=== PATIENT | male | born 1955 | race Caucasian/White ===

== ENCOUNTER 2021-01-19 00:57 | Day surgery (SDC) | payer BC, SELFPAY ==
[2021-01-02 13:21] VITALS: BMI 27.0
[2021-01-19] MEDS: LACTATED RINGERS 1,000 ML 150 ML IV CONT (06:47)
--- NOTE | 2021-01-19 06:51 | WPDANESEPPF ---
Anes - Initial Pre Proc Eval Procedure: Operation Date: 01/19/21 08:00 Proposed Procedures p Screening Colonoscopy - oJse G Carrasco MD Date/Time: 01/19/21 06:51 Surgeon: Jose G Carrasco MD Pre Op Diagnosis: neoplasm screening Patient Data Age: 65 Gender: M Height: 1.85 m Weight: 92.9 kg Allergies Allergy/AdvReac Type Severity Reaction Status Date / Time No Known Allergies Allergy Unknown Verified 01/19/21 06:45 Home Medications Medication Instructions Recorded Confirmed Type aspirin 81 mg tablet,delayed 81 mg PO DAILY 09/05/20 01/19/21 History release cholecalciferol (vitamin D3) 50 50 mcg PO BID 09/05/20 01/19/21 History mcg (2,000 unit) capsule glucosamine-chondroitin 500 mg-400 1 cap PO DAILY 09/05/20 01/19/21 History mg capsule loratadine 10 mg capsule 10 mg PO DAILY 09/05/20 01/19/21 History tamsulosin 0.4 mg capsule 0.4 mg PO DAILY 09/05/20 01/19/21 History venlafaxine 75 mg capsule,extended 75 mg PO DAILY #90 cap 09/05/20 01/19/21 Rx release 24 hr sod picosulf 10 mg-magnes 3.5 160 ml PO BID #160 ml 10/20/20 01/19/21 Rx gram-citric 12 gram/160 mL oral solution rosuvastatin 5 mg tablet 5 mg PO DAILY #30 tablet 12/15/20 01/19/21 Rx Adults Multivitamin 1 caplet PO DAILY 01/03/21 01/19/21 History coQ10 (ubiquinol) 1 caplet PO DAILY 01/03/21 01/19/21 History Patient hx anesthesia problems: none Family hx anesthesia problems: none PMFSH Past Medical History Medical History (Updated 01/19/21 @ 06:51 by Chapin Zayas MD) Depression Dyslipidemia Essential tremor Establishing care with new doctor, encounter for Social History Social History Smoking status: Former smoker Second hand tobacco smoke exposure: No Drinks per week: 3 Alcohol use details: 5-6 drinks on Fridays, Saturdays and Sundays Substance use: never Living arrangements: with family Gender identity (if verbalized by the patient): Male Spiritual care concerns: No Anes - Eval Final PreProcedure Day of Procedure 01/19/21 06:51 Patient weight: overweight Heart: regular rate and rhythm Lungs: clear to auscultation Airway: Mallampati scale class II Neurological: alert and oriented Last oral intake: >/= 8 hours ASA classification: II Emergent: no Anesthetic plan: proceed Anesthesia type and monitoring: general GIVS and standard monitoring Informed Consent: The patient's anesthetic plan and its attendant risks and benefits were discussed with the patient/family/POA. Questions were solicited and answers provided to the satisfaction of the patient/family/POA.
[2021-01-19 07:15] VITALS: BP 123/84; PULSE 74; RESP 16; TEMP 36; O2SAT 100; BMI 26.9
--- NOTE | 2021-01-19 07:37 | SUR.OPER ---
0730 SPOKE WITH PATIENT AND FAMILY...INSTRUCTED ON DELAY.
--- NOTE | 2021-01-19 08:15 | PM.HPGS ---
History of Present Illness History of Present Illness Consent: Risks, benefits, and alternatives have been discussed and questions answered. Patient agrees to proceed with procedure. Chief complaint: neoplasm screening Narrative: Ricardo Morrow is a 65 year old male here for screening colonoscopy, last one 10 years ago Review of Systems Constitutional: Constitutional: Denies headache(s) and Denies weakness Eyes: Eyes: Denies blurry vision ENT: Reports Normal hearing present, Denies headache(s) and Denies neck pain Cardiovascular: Cardiovascular: Denies chest pain and Denies dyspnea Respiratory: Respiratory: Denies dyspnea Gastrointestinal: Gastrointestinal: Reports no additional gastrointestinal complaints Genitourinary: Genitourinary: Denies dysuria Musculoskeletal: Musculoskeletal: Denies neck pain Integumentary/Breasts: Skin/Breast: Denies dry skin Neurologic: Reports Normal hearing present, Denies headache(s) and Denies weakness Psychiatric: Psychiatric: Denies anxiety Endocrine: Endocrine: Denies change in body appearance Hematologic/Lymphatic: Hematologic/Lymphatic: Denies easy bleeding Allergic/Immunologic: Allergic/Immunologic: Denies urticaria PMFSH Past Medical History Medical History (Updated 01/19/21 @ 06:51 by Chapin Zayas MD) Depression Dyslipidemia Essential tremor Establishing care with new doctor, encounter for Social History Social History Smoking status: Former smoker Second hand tobacco smoke exposure: No Drinks per week: 3 Alcohol use details: 5-6 drinks on Fridays, Saturdays and Sundays Substance use: never Living arrangements: with family Gender identity (if verbalized by the patient): Male Spiritual care concerns: No Meds Home Medications and Allergies Home Medications Medication Instructions Recorded Confirmed Type aspirin 81 mg tablet,delayed 81 mg PO DAILY 09/05/20 01/19/21 History release cholecalciferol (vitamin D3) 50 50 mcg PO BID 09/05/20 01/19/21 History mcg (2,000 unit) capsule glucosamine-chondroitin 500 mg-400 1 cap PO DAILY 09/05/20 01/19/21 History mg capsule loratadine 10 mg capsule 10 mg PO DAILY 09/05/20 01/19/21 History tamsulosin 0.4 mg capsule 0.4 mg PO DAILY 09/05/20 01/19/21 History venlafaxine 75 mg capsule,extended 75 mg PO DAILY #90 cap 09/05/20 01/19/21 Rx release 24 hr sod picosulf 10 mg-magnes 3.5 160 ml PO BID #160 ml 10/20/20 01/19/21 Rx gram-citric 12 gram/160 mL oral solution rosuvastatin 5 mg tablet 5 mg PO DAILY #30 tablet 12/15/20 01/19/21 Rx Adults Multivitamin 1 caplet PO DAILY 01/03/21 01/19/21 History coQ10 (ubiquinol) 1 caplet PO DAILY 01/03/21 01/19/21 History Allergies Allergy/AdvReac Type Severity Reaction Status Date / Time No Known Allergies Allergy Unknown Verified 01/19/21 06:45 Vital Signs Vital Signs - 24 hr 01/19/21 07:15 Temperature 96.8 F L Pulse Rate 74 Respiratory Rate 16 Blood Pressure 123/84 Pulse Oximetry 100 Exam Const: General: comfortable and no acute distress HENMT: General nose exam: Normal nares present Eyes: General: appearance normal, both eyes and all related structures Neck: Neck: no JVD Resp: Auscultation: clear to auscultation bilaterally Cardio: Rate: regular rate Rhythm: regular rhythm GI: Inspection: non-distended GI Palp: Yes Soft to palpation Skin: General skin exam: normal color Neuro: General: gait normal Speech: normal speech Extrem: General: normal to inspection Psych: Mental Status: mental status grossly normal Assessment and Plan Assessment and plan (1) Encounter for screening colonoscopy: Code(s): Z12.11 - Encounter for screening for malignant neoplasm of colon Status: Acute Assessment and Plan: colonoscopy
[2021-01-19 08:40] VITALS: BP 113/75; PULSE 74; RESP 21; O2SAT 100
[2021-01-19 08:50] VITALS: BP 122/72; PULSE 64; RESP 17; O2SAT 100
[2021-01-19 09:00] VITALS: BP 121/80; PULSE 60; RESP 19; O2SAT 100
== END 2021-01-19 09:10 | disposition home or self-care (01) ==
PROVIDERS: PCP Internal Medicine; Visit Provider Internal Medicine Gastroenterology
PROC: 0DJD8ZZ Inspection of Lower Intestinal Tract, Via Natural or Artificial Opening Endoscopic (ICD-10-PCS; CPT 45378; principal; 2021-01-19 08:00)
DX: Z12.11 Encounter for screening for malignant neoplasm of colon (principal); F32.9 Major depressive disorder, single episode, unspecified; E78.5 Hyperlipidemia, unspecified; G25.0 Essential tremor; K64.8 Other hemorrhoids
CPT/HCPCS: 45378; J2704; J7120

== ENCOUNTER 2021-10-10 09:11 | Outpatient (CLI) | payer MEDICARE, SELFPAY ==
--- NOTE | ~2021-10-10 | US_ITS ---
EXAMINATION: US aorta [facility] DATE: 10/10/2021 09:46 INDICATION: Abdominal aortic aneurysm screening. TECHNIQUE: Grayscale, color Doppler, and pulsed Doppler images of the aorta and common iliac arteries were obtained. COMPARISON: None. FINDINGS: The aorta is normal in caliber. The right common iliac artery is normal in caliber. The left common i liac artery is normal in caliber. IMPRESSION: 1. No abdominal aortic aneurysm. Reviewed, dictated and finalized at location A.
== END 2021-10-10 09:12 | disposition home or self-care (01) ==
PROVIDERS: PCP Internal Medicine; Visit Provider Internal Medicine
DX: Z13.6 Encounter for screening for cardiovascular disorders (principal); Z87.891 Personal history of nicotine dependence
CPT/HCPCS: 76706

== ENCOUNTER 2022-05-08 12:49 | Inpatient (IN) | payer MEDICARE, SELFPAY ==
[2022-05-08] VITALS (16 sets, daily range): BP systolic 119–157; BP diastolic 51–74; PULSE 60–85; RESP 14–30; TEMP 36.7–39.6; O2SAT 94–100
--- NOTE | ~2022-05-08 | CT_ITS ---
EXAMINATION: CT abdomen pelvis w con DATE: 05/08/2022 15:22 INDICATION: RLQ pain, septic TECHNIQUE: Computed tomography (CT) of the abdomen and pelvis was performed with 100 mL Omnipaque-350 intravenous contrast. Automated exposure control and iterative reconstruction technique were employe d. The dose-length product was 686.38 mGy-cm. COMPARISON: None. FINDINGS: Lower thorax: Small hiatal hernia. Liver: Normal. Biliary/Gallbladder: Gallbladder is normal. No bile duct dilation. Pancreas: No mass or duct dilation. Spleen: Normal. Adrenals:No mass. Kidneys: Simple right midpole cyst. Bilateral perinephric stranding. No hydronephrosis, suspicious ma ss, or obstructing calcification GI tract: No small or large bowel dilation. Dilated, hyperemic appendix with moderate surrounding inf lammatory change, cecal wall edema, and an appendicolith. Mesentery/Peritoneum: No ascites, mass, or free air. Retroperitoneum: No mass. Atherosclerotic abdominal aortic and/or arterial calcifications. Pelvis: Obscured by metal artifact. Prostatomegaly. Soft Tissues: Uncomplicated moderate bilateral fat-containing inguinal hernias and small fat-containi ng umbilical hernia. Bones: No acute osseous finding. Incompletely visualized, uncomplicated appearing right hip arthropl asty IMPRESSION: Acute uncomplicated appendicitis. Reviewed, dictated and finalized at location K.
[2022-05-08 13:21] LABS: Basophils Percent Auto 0.3 % (0.2-1.2); Eosinophils Percent Auto 0.1 % (0-4.4); Hematocrit 44.7 % (42.0-52.0); Immature Granulocyte Absolute 0.05 K/mm3 (0.00-0.031); Immature Granulocyte Percent A 0.4 % (0-0.5); Lymphocytes Absolute Auto 0.97 K/mm3 (0.9-3.2); Lymphocytes Percent Auto 8.3 % (18.3-44.2); Mean Corpuscular HGB Conc 33.6 g/dl (32-36); Mean Corpuscular Hemoglobin 33.6 pg (26-34); Mean Platelet Volume 9.3 fl (7.4-10.4); Monocytes Percent Auto 8.2 % (2.6-8.5); Neutrophils Absolute Auto 9.7 K/mm3 (1.3-6.7); Neutrophils Percent Auto 82.7 % (45.5-73.1); Platelet Count Result 207 k/mm3 (150-375); Red Blood Count 4.47 M/mm3 (4.6-6.20); Red Cell Distribution Width 12.8 % (11.5-14.5); White Blood Count 11.7 K/mm3 (4.5-10.0)
[2022-05-08 13:32] LABS: Alanine Aminotransferase 21 U/L (6-50); Albumin Level 4.5 g/dL (3.5-5.1); Alkaline Phosphatase 97 U/L (38-126); Anion Gap 13 mmol/L (8-16); Aspartate Amino Transferase 28 U/L (17-59); Bilirubin,Total 1.3 mg/dL (0.2-1.3); Blood Urea Nitrogen 10 mg/dL (9-20); Calcium 8.7 mg/dL (8.4-10.2); Carbon Dioxide 25 mmol/L (22-30); Chloride 98 mmol/L (98-107); Estimated Glomerular Filt Rate > 60; Glucose 138 mg/dL (65-110); Lipase 119 U/L (23-300); Potassium 3.8 mmol/L (3.4-5.0); Sodium 136 mmol/L (137-145)
--- NOTE | 2022-05-08 14:32 | ED.ABDPAIN ---
HPI - Abdominal Pain General Chief Complaint: Abdominal Pain Stated Complaint: ABD PAIN Time Seen by Provider: 05/08/22 14:31 Source: patient Mode of arrival: ambulatory Limitations: no limitations History of Present Illness HPI narrative: Patient is a 66-year-old male with a history of dyslipidemia, depression, BPH, presenting to the emergency department for evaluation of RLQ abd pain. Patient reports worsening right lower quadrant abdominal pain over the past 24 hours. Patient states that pain initially started as a gas-like pain in the right lower quadrant, patient now feels that he has severe pain on the entire right side of the abdomen. No radiation into the chest or flank. No ripping or tearing sensation to the pain. Patient reports fever, chills, nausea. Denies vomiting. Patient reports history of hernia repair in the past. Denies history of other intra-abdominal surgeries. He reports decreased oral intake and lack of appetite secondary to the pain. Last solid food intake was 05/07 approximately 8:30 PM. Patient did have a few small sips of clear liquids this morning. Related Data Home Medications Medication Instructions Recorded Confirmed aspirin 81 mg tablet,delayed 81 mg PO DAILY 09/05/20 10/02/21 release cholecalciferol (vitamin D3) 50 50 mcg PO BID 09/05/20 10/02/21 mcg (2,000 unit) capsule glucosamine-chondroitin 500 mg-400 1 cap PO DAILY 09/05/20 10/02/21 mg capsule loratadine 10 mg capsule 10 mg PO DAILY 09/05/20 10/02/21 Adults Multivitamin 1 caplet PO DAILY 01/03/21 10/02/21 famotidine 20 mg tablet 20 mg PO DAILY 03/26/21 10/02/21 melatonin 500 mcg disintegrating 0.5 mg sublingual QHS PRN 03/26/21 10/02/21 tablet,sublingual vitamin B complex 1 cap PO DAILY 03/26/21 10/02/21 Allergies Allergy/AdvReac Type Severity Reaction Status Date / Time No Known Allergies Allergy Unknown Verified 05/08/22 14:38 Review of Systems Review of Systems: CONSTITUTIONAL: Reports fever and chills EYES: Denies visual changes, redness, or discharge. ENT: Denies rhinorrhea, congestion, sore throat, or otalgia. CARDIOVASCULAR: Denies chest pain, palpitations, or edema. RESPIRATORY: Denies cough or dyspnea. GASTROINTESTINAL: Reports abdominal pain and nausea GENITOURINARY: Denies dysuria or hematuria. SKIN: Denies rash or itching. MUSCULOSKELETAL: Denies back pain, joint pain, or myalgia. NEUROLOGIC: Denies headache, numbness, or weakness. [facility] Past Medical History Medical History Depression Dyslipidemia Essential tremor Establishing care with new doctor, encounter for Social History Social History Smoking status: Never smoker Second hand tobacco smoke exposure: No Alcohol intake: current Drinks per week: 3 Alcohol use details: 5-6 drinks on Fridays, Saturdays and Sundays Substance use: never Substance use type: does not use Gender identity (if verbalized by the patient): Male Spiritual care concerns: No Exam Narrative: GENERAL: Awake, alert, conversant HEAD: Normocephalic, atraumatic. EYES: PERRLA and EOMI. ENT: Nares clear, no rhinorrhea or epistaxis. Mucous membranes dry NECK: Supple. CHEST: No respiratory distress, breathing even and non labored HEART: Regular rate, sinus rhythm ABDOMEN:Non distended, focal tenderness in the right lower quadrant, guarding present, patient with rebound EXTREMITIES: Normal range of motion. No edema. SKIN: Warm, dry, no rash. NEURO:No focal deficits. Alert and oriented x3 Course Vital Signs Vital signs: Vital Signs Temperature 37.7 C H 05/08/22 13:53 Pulse Rate 73 05/08/22 13:53 Respiratory Rate 18 05/08/22 13:53 Blood Pressure 122/60 05/08/22 13:53 Pulse Oximetry 100 05/08/22 13:53 Temperature 39.0 C H 05/08/22 16:10 Pulse Rate 78 05/08/22 16:10 Respiratory Rate 16 05/08/22 16:10 Blood Pressur
[2022-05-08] MEDS: ONDANSETRON INJ 4 MG/2 ML VIAL IV PUSH (15:05)
[2022-05-08] MEDS: SODIUM CHLORIDE 0.9% IV 1,000 ML 999 ML IV CONT (15:06)
[2022-05-08] MEDS: MORPHINE SULFATE (*CRX) 4 MG/ML INJ IV PUSH (15:06)
[2022-05-08 16:05] LABS: Lactic Acid Reflex 2.1 mmol/L (0.7-2.0)
[2022-05-08] MEDS: LACTATED RINGERS 1,000 ML 30 ML IV CONT ×2 (16:30→18:24)
[2022-05-08 16:32] LABS: SARS-CoV-2 RNA PCR Negative
--- NOTE | 2022-05-08 16:50 | WPDHPUPDATE1 ---
History and Physical Update Update Date/Time: 05/08/22 16:50 History and Physical has been reviewed, including an updated exam of the patient. There are NO changes in the patient's condition. Risks, benefits, and alternatives have been discussed and questions answered. Patient agrees to proceed with procedure.
--- NOTE | 2022-05-08 16:56 | PM.IMHP ---
H&P: HPI History of Present Illness Date/Time: 05/08/22 16:56 Chief Complaint: Right lower quadrant abdominal pain Narrative: Patient is a 66-year-old man who began experiencing mid abdominal pain last night. This moved to the right lower quadrant and became more severe. He also had nausea and has been having fevers. He has had a temp of a 102.2? while in the emergency room. He was noted to have tenderness with guarding in both the right and left lower quadrants. His white blood cell count is elevated to 11,700. CT scan of the abdomen and pelvis showed acute appendicitis. I reviewed the CT scan independently. I agree there is an appendicoliths in the appendix is quite dilated at 18.8 mm by my measurement. He also has a skin mole on his right eyelid which has been bothering him and getting larger. He would like for me to remove this at the same procedure. Review of Systems Review of Systems: All systems reviewed & are unremarkable except as noted in HPI and below (HPI and those items noted below) Constitutional: Constitutional: Denies chills and Denies fever(s) Cardiovascular: Cardiovascular: Denies chest pain, Denies diaphoresis, Denies dyspnea and Denies paroxysmal nocturnal dyspnea Respiratory: Respiratory: Denies chest congestion, Denies cough and Denies dyspnea Integumentary/Breasts: Skin/Breast: Denies lesions and Denies rash PMFSH Past Medical History Medical History Depression Dyslipidemia Essential tremor Establishing care with new doctor, encounter for Social History Social History Smoking status: Never smoker Second hand tobacco smoke exposure: No Alcohol intake: current Drinks per week: 3 Alcohol use details: 5-6 drinks on Fridays, Saturdays and Sundays Substance use: never Substance use type: does not use Gender identity (if verbalized by the patient): Male Spiritual care concerns: No Meds Home Medications and Allergies Home Medications Medication Instructions Recorded Confirmed Type aspirin 81 mg tablet,delayed 81 mg PO DAILY 09/05/20 10/02/21 History release cholecalciferol (vitamin D3) 50 50 mcg PO BID 09/05/20 10/02/21 History mcg (2,000 unit) capsule glucosamine-chondroitin 500 mg-400 1 cap PO DAILY 09/05/20 10/02/21 History mg capsule loratadine 10 mg capsule 10 mg PO DAILY 09/05/20 10/02/21 History Adults Multivitamin 1 caplet PO DAILY 01/03/21 10/02/21 History famotidine 20 mg tablet 20 mg PO DAILY 03/26/21 10/02/21 History melatonin 500 mcg disintegrating 0.5 mg sublingual QHS PRN 03/26/21 10/02/21 History tablet,sublingual vitamin B complex 1 cap PO DAILY 03/26/21 10/02/21 History primidone 50 mg tablet 75 mg PO QHS 90 days #135 tabs 12/21/21 Rx venlafaxine 75 mg capsule,extended 75 mg PO DAILY #90 caps 01/29/22 Rx release 24 hr tamsulosin 0.4 mg capsule 0.4 mg PO DAILY #90 caps 02/15/22 Rx Allergies Allergy/AdvReac Type Severity Reaction Status Date / Time No Known Allergies Allergy Unknown Verified 05/08/22 14:38 Vital Signs Vital Signs - 24 hr 05/08/22 13:53 05/08/22 14:36 05/08/22 16:10 Temperature 37.7 C H 38.2 C H 39.0 C H Pulse Rate 73 77 78 Respiratory Rate 18 18 16 Blood Pressure 122/60 157/74 H 121/57 L Pulse Oximetry 100 100 95 Oxygen Delivery Room Air Exam Narrative: Febrile Const: General: cooperative, healthy appearing, no acute distress, alert, awake, uncomfortable and well nourished Nutritional Appearance: average body habitus Orientation/consciousness: patient oriented x3 HENMT: Head: normocephalic and atraumatic Mouth: Yes Normal oral and palatal mucosa present Eyes: Eyelids: eyelid abnormality right upper eyelid (Dark but regular exophytic skin mole noted) Conjunctivae: conjunctivae normal Pupils: Equal, round and reactive pupils present EOM: EOMs intact bilaterally Neck: Neck:
--- NOTE | 2022-05-08 17:00 | WPDANESEPP ---
Anes - Eval Pre Procedure Procedure: Operation Date: 05/08/22 16:00 Proposed Procedures p Laparoscopic Appendectomy - Mike Cintron MD Date/Time: 05/08/22 17:00 Surgeon: Abdulaziz Preop Diagnosis: Acute appendicitis Pre Op Diagnosis: ABD PAIN Patient Data Age: 66 Gender: M Height: 1.85 m Weight: 88.6 kg Last Vital Signs Temp 102.2 F H 05/08/22 16:10 Pulse 78 05/08/22 16:10 Resp 16 05/08/22 16:10 BP 121/57 L 05/08/22 16:10 Pulse Ox 95 05/08/22 16:10 O2 Del Method Room Air 05/08/22 14:36 Allergies Allergy/AdvReac Type Severity Reaction Status Date / Time No Known Allergies Allergy Unknown Verified 05/08/22 14:38 Home Medications Medication Instructions Recorded Confirmed Type aspirin 81 mg tablet,delayed 81 mg PO DAILY 09/05/20 10/02/21 History release cholecalciferol (vitamin D3) 50 50 mcg PO BID 09/05/20 10/02/21 History mcg (2,000 unit) capsule glucosamine-chondroitin 500 mg-400 1 cap PO DAILY 09/05/20 10/02/21 History mg capsule loratadine 10 mg capsule 10 mg PO DAILY 09/05/20 10/02/21 History Adults Multivitamin 1 caplet PO DAILY 01/03/21 10/02/21 History famotidine 20 mg tablet 20 mg PO DAILY 03/26/21 10/02/21 History melatonin 500 mcg disintegrating 0.5 mg sublingual QHS PRN 03/26/21 10/02/21 History tablet,sublingual vitamin B complex 1 cap PO DAILY 03/26/21 10/02/21 History primidone 50 mg tablet 75 mg PO QHS 90 days #135 tabs 12/21/21 Rx venlafaxine 75 mg capsule,extended 75 mg PO DAILY #90 caps 01/29/22 Rx release 24 hr tamsulosin 0.4 mg capsule 0.4 mg PO DAILY #90 caps 02/15/22 Rx Laboratory Tests 05/08/22 05/08/22 05/08/22 13:12 13:12 15:48 WBC 11.7 K/mm3 H K/mm3 (4.5-10.0) RBC 4.47 M/mm3 L M/mm3 (4.6-6.20) Hgb 15.0 g/dL g/dL (14.0-18.0) Hct 44.7 % % (42.0-52.0) MCV 100.0 fl fl (80-100) MCH 33.6 pg pg (26-34) MCHC 33.6 g/dl g/dl (32-36) RDW 12.8 % % (11.5-14.5) Plt Count 207 k/mm3 k/mm3 (150-375) MPV 9.3 fl fl (7.4-10.4) Immature Gran % (Auto) 0.4 % % (0-0.5) Neut % (Auto) 82.7 % H % (45.5-73.1) Lymph % (Auto) 8.3 % L % (18.3-44.2) Blair % (Auto) 8.2 % % (2.6-8.5) Eos % (Auto) 0.1 % % (0-4.4) Baso % (Auto) 0.3 % % (0.2-1.2) Lymph # (Auto) 0.97 K/mm3 K/mm3 (0.9-3.2) Blair # (Auto) 1.0 K/mm3 H K/mm3 (0.1-0.6) Eos # (Auto) 0.0 K/mm3 K/mm3 (0-0.3) Baso # (Auto) 0.0 K/mm3 K/mm3 (0.0-0.1) Abs Immat Gran (auto) 0.05 K/mm3 H K/mm3 (0.00-0.031) Absolute Neuts (auto) 9.7 K/mm3 H K/mm3 (1.3-6.7) Absolute Nucleated RBC 0.0 K/mm3 K/mm3 (0.0-0.012) Nucleated RBC % 0.0 % % (0.0-0.2) Sodium 136 mmol/L L mmol/L (137-145) Potassium 3.8 mmol/L mmol/L (3.4-5.0) Chloride 98 mmol/L mmol/L (98-107) Carbon Dioxide 25 mmol/L mmol/L (22-30) Anion Gap 13 mmol/L mmol/L (8-16) BUN 10 mg/dL mg/dL (9-20) Creatinine 0.70 mg/dL mg/dL (0.7-1.3) Estim Creat Clear Calc Not Reportable Estimated GFR > 60 (59 - ) Glucose 138 mg/dL H mg/dL (65-110) Lactic Acid 2.1 mmol/L H mmol/L (0.7-2.0) Calcium 8.7 mg/dL mg/dL (8.4-10.2) Total Bilirubin 1.3 mg/dL mg/dL (0.2-1.3) AST 28 U/L U/L (17-59) ALT 21 U/L U/L (6-50) Alkaline Phosphatase 97 U/L U/L (38-126) Total Protein 8.0 g/dL g/dL (6.3-8.2) Albumin 4.5 g/dL g/dL (3.5-5.1) Lipase 119 U/L U/L (23-300) SARS-CoV-2 RNA (RT-PCR) 05/08/22 15:48 WBC RBC Hgb Hct MCV MCH MCHC RDW Plt Count MPV Immature Gran % (Auto) Neut % (Auto) Lymph % (
[2022-05-08] MEDS: KETOROLAC 15 MG/ML VIAL (*BKC) IV PUSH (17:02)
--- NOTE | 2022-05-08 17:07 | P.PNAN_ITS ---
Anes - Eval Final PreProcedure Day of Procedure 05/08/22 17:07 Patient weight: overweight Heart: regular rate and rhythm Lungs: clear to auscultation Airway: Mallampati scale class II Neurological: alert and oriented Last oral intake: >/= 8 hours ASA classification: II Emergent: yes Anesthetic plan: proceed Anesthesia type and monitoring: general ETT and standard monitoring Results Review: All pre-operative results and documents have been reviewed as part of the pre- operative evaluation. Informed Consent: The patient's anesthetic plan and its attendant risks and benefits were discussed with the patient/family/POA. Questions were solicited and answers provided to the satisfaction of the patient/family/POA.
[2022-05-08] MEDS: BUPIVACAINE/EPINEPHRINE 0.25% 50 ML VIAL 30 ML INFILTRATE (17:52)
--- NOTE | 2022-05-08 18:43 | W.PM.PROC2 ---
Procedure Note - Detailed Date of Procedure 05/08/22 Pre-op Diagnosis Acute appendicitis, pigmented skin lesion right eyelid Post-op Diagnosis Other (Ruptured appendicitis with generalized peritonitis, pigmented skin lesion right eyelid) Procedure Performed Excision 1.2 cm skin lesion right eyelid with 1 mm margins (1.4 cm excision); laparoscopic appendectomy Surgeon Mike Cintron MD [employer] Mariana FREEDMAN Anesthesia General and Local (0.25% Marcaine with epinephrine) Indications Patient presented to the emergency room with right lower quadrant abdominal pain and fever. He had had nausea as well[place] [id number]. [place] scan showed acute uncomplicated appendicitis. He also had a fleshy pigmented skin lesion of the right eyelid which had been a nuisance and getting larger. He he asked that this be removed at the same procedure. Findings Eyelid lesion appeared to be a seborrheic keratosis. It was sent to pathology in formalin. The appendix was clearly ruptured and had partially walled off but there was erythema and fibrinous exudate on the adjacent small intestine. Several bowel surfaces were erythematous and hyperemic associated with the peritonitis. There was greenish brown fluid in the pelvis. All peritoneal surfaces were hypervascular and erythematous. The appendix itself had a 6 mm perforation just above its base which was draining purulent fluid. No abscess was noted. Description of Procedure Patient was taken to surgery and induced into general anesthesia. We started with the right eyelid lesion. This was prepped with Betadine. Local anesthetic was infiltrated just below and around the lesion. The lesion was then excised with a 2 cm ellipse. This was oriented transversely. Lesion was sent to pathology in formalin. The wound was closed with interrupted 5 0 nylon suture. The wound was dressed with antibiotic ointment. We then proceeded with prep and drape of the abdomen for the appendectomy. A left subcostal trocar was placed 1st. These were applied Medical optical trocars and local anesthetic was used as well. After the initial trocar placement, positioning the camera showed that this was much worse than routine appendicitis. A 2nd 5 mm port was placed in the left mid abdomen. A 10 11 port was then placed in the left lower quadrant. Patient was placed in Trendelenburg with the right-side elevated. I suction greenish brown fluid in the pelvis and then suctioned any exudate that I could find in the general vicinity of the cecum. I then followed the tenia and gently freed the appendix from adhesions. The large perforation near the base of the appendix was seen and purulent fluid began draining from it. This was suctioned away as it drained. I then gently continued to mobilize the appendix from inflammatory adhesions. This mobilization resulted in more purulent drainage which again was suctioned away right away. Eventually the drainage stopped. The appendix was continued to be dissected. Eventually I had mobilized it fully from the inflammatory adhesions. I then dissected in the mesoappendix. The appendiceal artery was thoroughly cauterized and divided. We continued this dissection and eventually skeletonized the base of the appendix. This was just proximal to the perforation. The rest of the mesoappendix Cl attachments were freed. I then placed an endoloop around the base of the appendix. This was a Vicryl endoloop. I then amputated the appendix just above the ligature. The mucosa of the appendiceal stump was cauterized. The appendix was immediately placed in an Endo-Catch bag. It was retrieved through the 10 11 left lower quadrant trocar site. I replaced the trocar and then we reviewed the areas of dissection. I suctioned away any residual fluid and then irrigated around the appendix and in the right lower quadrant. This fluid was suctioned away. I irrigated in the pelvis and suctioned this away. No absce
[2022-05-08 18:52] LABS: Reflex Lactic Acid Yes or No Add Lactic
[2022-05-08 21:23] LABS: INR 1.2; Prothrombin Time 14.5 Seconds (11.1-14.7)
[2022-05-08 21:24] LABS: Partial Thromboplastin Time 32.4 SECONDS (22.3-36.8)
[2022-05-08] MEDS: HYDROcodone/acetaminophen (*CRX) 10-325 MG TABLET 1 TAB PO (21:31)
[2022-05-08 21:32] LABS: Lactic Acid 1.3 mmol/L (0.7-2.0)
[2022-05-08] MEDS: LACTATED RINGERS 1,000 ML 100 ML IV CONT (21:32)
[2022-05-08] MEDS: FAMOTIDINE 20 MG/2 ML VIAL IV PUSH (21:32)
[2022-05-09] VITALS (10 sets, daily range): BP systolic 117–143; BP diastolic 65–74; PULSE 7–95; RESP 16–20; TEMP 36.5–39.2; O2SAT 92–99
[2022-05-09] MEDS: HYDROcodone/acetaminophen (*CRX) 10-325 MG TABLET 1 TAB PO (02:45)
[2022-05-09] MEDS: MORPHINE SULFATE (*CRX) 4 MG/ML INJ IV PUSH ×3 (06:45→12:02)
[2022-05-09] MEDS: LACTATED RINGERS 1,000 ML 100 ML IV CONT ×2 (06:46→17:04)
[2022-05-09 07:05] LABS: Hematocrit 39.7 % (42.0-52.0); Hemoglobin 13.3 g/dL (14.0-18.0); Mean Corpuscular HGB Conc 33.5 g/dl (32-36); Mean Corpuscular Hemoglobin 33.9 pg (26-34); Mean Corpuscular Volume 101.3 fl (80-100); Mean Platelet Volume 9.4 fl (7.4-10.4); Platelet Count Result 184 k/mm3 (150-375); Red Blood Count 3.92 M/mm3 (4.6-6.20); Red Cell Distribution Width 13.1 % (11.5-14.5); White Blood Count 8.9 K/mm3 (4.5-10.0)
[2022-05-09 07:19] LABS: Anion Gap 6 mmol/L (8-16); Blood Urea Nitrogen 11 mg/dL (9-20); Carbon Dioxide 23 mmol/L (22-30); Chloride 100 mmol/L (98-107); Estimated CRCL calculation 102 ml/min; Estimated Glomerular Filt Rate > 60; Glucose 125 mg/dL (65-110); Potassium 3.9 mmol/L (3.4-5.0); Sodium 129 mmol/L (137-145)
[2022-05-09 07:32] LABS: CRP 21.9 mg/dL (<1.0)
[2022-05-09] MEDS: FAMOTIDINE 20 MG/2 ML VIAL IV PUSH ×2 (09:37→22:39)
[2022-05-09] MEDS: ENOXAPARIN 40 MG/0.4 ML SYRINGE SUB-Q (09:37)
--- NOTE | 2022-05-09 11:46 | PM.PNGS ---
Progress Note: A&P Assessment and Plan (1) Acute appendicitis: Qualifiers: Acute appendicitis type: with generalized peritonitis Appendicitis gangrene presence: without gangrene Appendicitis perforation presence: with perforation Appendicitis abscess presence: without abscess Qualified Code(s): K35.20 - Acute appendicitis with generalized peritonitis, without abscess Code(s): K35.80 - Unspecified acute appendicitis Status: Acute Assessment and Plan: Post-op day 1 and doing well. His appendix was perforated with generalized peritonitis. 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 Pathology pending. (3) BPH (benign prostatic hyperplasia): Code(s): N40.0 - Benign prostatic hyperplasia without lower urinary tract symptoms Status: Acute Assessment and Plan: Patient is still feeling full after voiding and is concerned he is not emptying his bladder. I asked the nurse to get a post-void residual. Will restart his tamsulosin today. Plan I have discussed the patient's case and plan of care with Dr. Cintron. Subjective Subjective Date/Time Seen: 05/09/22 11:46 Post Op day: 1 (Laparoscopic appendectomy, excision 1.2 cm skin lesion right eyelid) Patient reports: still having pain (generalized abdominal pain, worse in suprapubic area), tolerating liquids well, no flatus and no bowel movement Interval history: Patient seen and examined. Chart reviewed. 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 He denies any nausea or bloating. He is doing well with clear liquids. He does report feeling like he may not be emptying his bladder and had only urinated once overnight (charted as 400 cc u/o). He also had a headache overnight and this morning, but this has resolved at this time. Review of Systems Review of Systems: All systems reviewed & are unremarkable except as noted in HPI and below Constitutional: Constitutional: Reports as per HPI, Reports no additional constitutional complaints, Denies chills and Denies fever(s) Cardiovascular: Cardiovascular: Reports no additional cardiovascular complaints, Denies chest pain and Denies leg edema Respiratory: Respiratory: Reports no additional respiratory complaints, Denies cough and Denies dyspnea Gastrointestinal: Gastrointestinal: Reports as per HPI and Reports no additional gastrointestinal complaints Neurologic: Reports system reviewed and no additional complaints, except as documented, Denies Abnormal speech present and Denies focal weakness Exam Const: General: comfortable, no acute distress and awake Orientation/consciousness: patient oriented x3 Eyes: Other: Right eyelid incision dry and intact with localized ecchymosis across the eyelid Resp: Effort & Inspection: normal respiratory effort Auscultation: clear to auscultation bilaterally Cardio: Rate: regular rate Rhythm: regular rhythm GI: Inspection: non-distended and incision (incisions dry and glue intact) GI Palp: Yes Soft to palpation and Yes Tenderness to palpation present (GI) (diffusely tender throughout) Auscultation: Hypoactive bowel sounds present Neuro: General: moves all extremities and no focal motor deficits Extrem: General: no calf tenderness and no edema Psych: Mental Status: mental status grossly normal Insight: Good insight present (Psych) Objective Data Vital Signs Vital Signs: Vital Signs - 24 hr 05/08/22 13:53 05/08/22 14:36 05/08/22 16:10 Temperature 100 F H 100.7 F H 102.2 F H Pulse Rate 73 77 78 Respiratory Rate 18 18 16 Blood Pressure 122/
--- NOTE | 2022-05-09 11:52 | WPDANESPN ---
Anes - Prog Note Post-Op Date/Time: 05/09/22 11:52 Cardiovascular status: normal Respiratory status: normal Airway patency: baseline Mental status: baseline Post-Op hydration status: normal Vital Signs: Last Vital Signs Temp 36.7 C 05/09/22 10:33 Pulse 75 05/09/22 11:09 Resp 20 05/09/22 11:09 BP 117/69 05/09/22 10:33 Pulse Ox 94 05/09/22 11:09 O2 Del Method Room Air 05/09/22 11:09 O2 Flow Rate 10 05/08/22 18:40 Pain Score (VAS): 08/16 I/O: Intake & Output 05/08/22 05/09/22 05/09/22 23:59 07:59 15:59 Intake Total 1300 1050 Output Total 400 Balance 1300 650 Laboratory Tests 05/09/22 06:33 05/09/22 06:33 05/08/22 05/08/22 05/08/22 13:12 13:12 15:48 WBC 11.7 H RBC 4.47 L Hgb 15.0 Hct 44.7 MCV 100.0 MCH 33.6 MCHC 33.6 RDW 12.8 Plt Count 207 MPV 9.3 Immature Gran % (Auto) 0.4 Neut % (Auto) 82.7 H Lymph % (Auto) 8.3 L [place] % (Auto) 8.2 Eos % (Auto) 0.1 Baso % (Auto) 0.3 Lymph # (Auto) 0.97 [place] # (Auto) 1.0 H Eos # (Auto) 0.0 Baso # (Auto) 0.0 Abs Immat Gran (auto) 0.05 H Absolute Neuts (auto) 9.7 H Absolute Nucleated RBC 0.0 Nucleated RBC % 0.0 PT INR APTT Sodium 136 L Potassium 3.8 Chloride 98 Carbon Dioxide 25 Anion Gap 13 BUN 10 Creatinine 0.70 Estim Creat Clear Calc Not Reportable Estimated GFR > 60 Glucose 138 H Lactic Acid 2.1 H Calcium 8.7 Total Bilirubin 1.3 AST 28 ALT 21 Alkaline Phosphatase 97 C-Reactive Protein Total Protein 8.0 Albumin 4.5 Lipase 119 SARS-CoV-2 RNA (RT-PCR) Blood Type Antibody Screen 05/08/22 05/08/22 05/08/22 15:48 20:50 20:50 WBC RBC Hgb Hct MCV MCH MCHC RDW Plt Count MPV Immature Gran % (Auto) Neut % (Auto) Lymph % (Auto) [place] % (Auto) Eos % (Auto) Baso % (Auto) Lymph # (Auto) [place] # (Auto) Eos # (Auto) Baso # (Auto) Abs Immat Gran (auto) Absolute Neuts (auto) Absolute Nucleated RBC Nucleated RBC % PT 14.5 INR 1.2 APTT 32.4 Sodium Potassium Chloride Carbon Dioxide Anion Gap BUN Creatinine Estim Creat Clear Calc Estimated GFR Glucose Lactic Acid Calcium Total Bilirubin AST ALT Alkaline Phosphatase C-Reactive Protein Total Protein Albumin Lipase SARS-CoV-2 RNA (RT-PCR) Negative Blood Type B Positive Antibody Screen Negative 05/08/22 05/09/22 05/09/22 20:50 06:33 06:33 WBC 8.9 RBC 3.92 L Hgb 13.3 L Hct 39.7 L MCV 101.3 H MCH 33.9 MCHC 33.5 RDW 13.1 Plt Count 184 MPV 9.4 Immature Gran % (Auto) Neut % (Auto) Lymph % (Auto) [place] % (Auto) Eos % (Auto) Baso % (Auto) Lymph # (Auto) [place] # (Auto) Eos # (Auto) Baso # (Auto) Abs Immat Gran (auto) Absolute Neuts (auto) Absolute Nucleated RBC Nucleated RBC % PT INR APTT Sodium 129 L Potassium 3.9 Chloride 100 Carbon Dioxide 23 Anion Gap 6 L BUN 11 Creatinine 0.70 Estim Creat Clear Calc 102 Estimated GFR > 60 Glucose 125 H Lactic Acid 1.3 Calcium 8.0 L Total Bilirubin AST ALT Alkaline Phosphatase C-Reactive Protein 21.9 H Total Protein Albumin Lipase SARS-CoV-2 RNA (RT-PCR) Blood Type Antibody Screen Post-procedural complaints: none Patient Feedback: Patient satisfied with anesthetic care.
[2022-05-09] MEDS: TAMSULOSIN HCL 0.4 MG CAPSULE PO (13:15)
[2022-05-09] MEDS: ACETAMINOPHEN 500 MG TABLET PO (20:02)
[2022-05-09] MEDS: MORPHINE SULFATE (*CRX) 2 MG/ML INJ IV PUSH (20:04)
[2022-05-10] MEDS: LACTATED RINGERS 1,000 ML 100 ML IV CONT (04:28)
[2022-05-10 05:00] VITALS: BP 129/74; PULSE 84; RESP 20; TEMP 37.4; O2SAT 100
[2022-05-10 06:27] LABS: Hematocrit 39.8 % (42.0-52.0); Hemoglobin 13.4 g/dL (14.0-18.0); Mean Corpuscular HGB Conc 33.7 g/dl (32-36); Mean Corpuscular Hemoglobin 33.5 pg (26-34); Mean Corpuscular Volume 99.5 fl (80-100); Mean Platelet Volume 9.5 fl (7.4-10.4); Platelet Count Result 185 k/mm3 (150-375); Red Cell Distribution Width 12.7 % (11.5-14.5); White Blood Count 9.9 K/mm3 (4.5-10.0)
[2022-05-10 06:39] LABS: Anion Gap 11 mmol/L (8-16); Blood Urea Nitrogen 11 mg/dL (9-20); Calcium 8.2 mg/dL (8.4-10.2); Carbon Dioxide 24 mmol/L (22-30); Chloride 95 mmol/L (98-107); Estimated CRCL calculation 102 ml/min; Estimated Glomerular Filt Rate > 60; Glucose 138 mg/dL (65-110); Potassium 3.7 mmol/L (3.4-5.0); Sodium 130 mmol/L (137-145)
[2022-05-10] MEDS: HYDROcodone/acetaminophen (*CRX) 10-325 MG TABLET 1 TAB PO ×3 (09:39→20:10)
[2022-05-10] MEDS: FAMOTIDINE 20 MG/2 ML VIAL IV PUSH (09:39)
[2022-05-10] MEDS: ENOXAPARIN 40 MG/0.4 ML SYRINGE SUB-Q (09:39)
[2022-05-10] MEDS: VENLAFAXINE HCL XR 75 MG CAP.ER.24H PO (12:46)
--- NOTE | 2022-05-10 16:00 | PM.PNGS ---
Progress Note: A&P Assessment and Plan (1) Acute appendicitis with perforation and generalized peritonitis, without abscess: Code(s): K35.20 - Acute appendicitis with generalized peritonitis, without abscess Status: Acute Assessment and Plan: Improving well considering late diagnosis and operative findings. Continue IV Zosyn antibiotics. Advance diet slowly. Ambulate as tolerated. Follow serial exam and labs with continued inpatient care. 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 Ecchymosis not unexpected. Wound looks good. Subjective Subjective Date/Time Seen: 05/10/22 16:00 Post Op day: 2 Patient reports: pain is less, flatus, bowel movement and fever Exam Const: General: cooperative, comfortable, no acute distress, alert, awake and tired appearing; No confusion Eyes: Periorbital: periorbital findings abnormal right periorbital ecchymosis Eyelids: eyelid abnormality right upper eyelid (Incision dry and healing well) GI: Inspection: non-distended and incision (Healing well) GI Palp: Yes Soft to palpation, Yes Tenderness to palpation present (GI), No Hernia present and No Palpable mass present Auscultation: Hypoactive bowel sounds present Objective Data Vital Signs Vital Signs: Vital Signs - 24 hr 05/09/22 18:08 05/09/22 20:02 05/09/22 22:42 Temperature 37.4 C 39.2 C H 37.8 C H Pulse Rate 95 94 Respiratory Rate 16 18 Blood Pressure 129/70 143/74 H Pulse Oximetry 93 92 Oxygen Delivery 05/09/22 23:53 05/10/22 05:00 05/10/22 08:00 Temperature 37.4 C Pulse Rate 94 84 Respiratory Rate 18 20 Blood Pressure 129/74 Pulse Oximetry 92 100 Oxygen Delivery Room Air Room Air Intake/Output Intake/Output: Intake & Output 05/07/22 05/08/22 05/09/22 05/10/22 23:59 23:59 23:59 23:59 Intake Total 1400 2200 1150 Output Total 1875 1450 Balance 1400 325 -300 Meds/Results Medications: Active Medications Generic Name Dose Route Start Last Admin Trade Name Freq PRN Reason Stop Dose Admin Acetaminophen 500 mg 05/08/22 20:23 05/09/22 20:02 Acetaminophen 500 Mg Tablet PO 500 mg Q6H PRN Administration Mild Pain (1-3) or Fever Hydrocodone Bitart/Acetaminophen 1 tab 05/08/22 20:23 Hydrocodone/Acetaminophen (*Crx) 5-325 Mg Tablet PO Q4H PRN Pain Rated 4-6 Hydrocodone Bitart/Acetaminophen 1 tab 05/08/22 20:23 05/10/22 14:22 Hydrocodone/Acetaminophen (*Crx) 10-325 Mg Tablet PO 1 tab Q4H PRN Administration Pain Rated 7-10 Enoxaparin Sodium 40 mg 05/09/22 09:00 05/10/22 09:39 Enoxaparin 40 Mg/0.4 Ml Syringe SUB-Q 40 mg DAILY RYAN Administration Famotidine 20 mg 05/10/22 21:00 Famotidine 20 Mg Tablet PO Q12HR RYAN Piperacillin/Tazobactam/Dextrose 3.375 gm in 50 mls @ 100 mls/hr 05/08/22 21:00 05/10/22 14:56 Zosyn 3.375 Gm/D5w 50ml Pm IVPB Infused Q6H RYAN Infusion Ibuprofen 800 mg in 200 mls @ 400 mls/hr 05/09/22 10:53 Caldolor 800 Mg/200 Ml IVPB Q6H PRN Pain Rated 1-3 Potassium Chloride/Sodium Chloride 1,000 mls @ 80 mls/hr 05/10/22 15:55 Kcl 30 Meq/Ns IV CONT .[id number] RYAN Morphine Sulfate 2 mg 05/08/22 20:23 05/09/22 20:04 Morphine Sulfate (*Crx) 2 Mg/Ml Inj IV PUSH 2 mg Q2H PRN Administration Pain Rated 4-6 Morphine Sulfate 4 mg 05/08/22 20:23 05/09/22 12:02 Morphine Sulfate (*Crx) 4 Mg/Ml Inj IV PUSH 4 mg Q2H PRN Administration Pain Rated 7-10 Naloxone HCl 0.1 mg 05/08/22 20:23 Naloxone Hcl 0.4 Mg/Ml Vial IV PUSH Q2M PRN Opiate Reversal Non-Formulary Medication 300 mcg 05/10/22 15:55 Melatonin SUBLINGUAL QHS PRN Insomnia Ondansetron HCl 4 mg 05/08/22 20:23 Ondansetron Inj 4 Mg/2 Ml Vial IV PUSH Q4H PRN Nausea And Vomiting
[2022-05-10 16:20] VITALS: BP 134/69; PULSE 86; RESP 18; TEMP 37.5; O2SAT 100
[2022-05-10] MEDS: TAMSULOSIN HCL 0.4 MG CAPSULE PO (20:10)
[2022-05-10] MEDS: FAMOTIDINE 20 MG TABLET PO (20:10)
[2022-05-10 22:14] VITALS: BP 135/85; PULSE 91; RESP 26; TEMP 37.9; O2SAT 93
[2022-05-11] MEDS: HYDROcodone/acetaminophen (*CRX) 5-325 MG TABLET 1 TAB PO ×2 (05:55→10:58)
[2022-05-11 06:50] LABS: Hematocrit 38.4 % (42.0-52.0); Hemoglobin 13.1 g/dL (14.0-18.0); Mean Corpuscular HGB Conc 34.1 g/dl (32-36); Mean Corpuscular Hemoglobin 33.9 pg (26-34); Mean Corpuscular Volume 99.2 fl (80-100); Mean Platelet Volume 9.1 fl (7.4-10.4); Platelet Count Result 195 k/mm3 (150-375); Red Blood Count 3.87 M/mm3 (4.6-6.20); Red Cell Distribution Width 12.6 % (11.5-14.5); White Blood Count 7.9 K/mm3 (4.5-10.0)
[2022-05-11 07:05] LABS: Anion Gap 12 mmol/L (8-16); Blood Urea Nitrogen 9 mg/dL (9-20); Carbon Dioxide 27 mmol/L (22-30); Chloride 95 mmol/L (98-107); Estimated CRCL calculation 102 ml/min; Estimated Glomerular Filt Rate > 60; Glucose 108 mg/dL (65-110); Potassium 3.6 mmol/L (3.4-5.0); Sodium 134 mmol/L (137-145)
[2022-05-11] MEDS: VENLAFAXINE HCL XR 75 MG CAP.ER.24H PO (08:58)
[2022-05-11] MEDS: ENOXAPARIN 40 MG/0.4 ML SYRINGE SUB-Q (08:58)
[2022-05-11] MEDS: FAMOTIDINE 20 MG TABLET PO ×2 (08:58→21:21)
--- NOTE | 2022-05-11 13:10 | PM.PNGS ---
Progress Note: A&P Assessment and Plan (1) Acute appendicitis with perforation and generalized peritonitis, without abscess: Code(s): K35.20 - Acute appendicitis with generalized peritonitis, without abscess Status: Acute Assessment and Plan: Making progress. Still has less than normal bowel function. Little appetite. Continue full liquids and antibiotics. Ambulate. Continue to follow closely with labs and exam. 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 Subjective Subjective Date/Time Seen: 05/11/22 13:10 Post Op day: 3 Patient reports: still having pain (Feels like having gas pains upper abdomen), nausea and fever (T-max 37.9? at 10:00 p.m. last night, normal since) Exam Const: General: comfortable, no acute distress, alert, awake and well nourished Orientation/consciousness: patient oriented x3 and No confusion Eyes: Periorbital: periorbital findings abnormal right periorbital ecchymosis Eyelids: eyelid abnormality right upper eyelid (Incision healing well) GI: Inspection: non-distended and incision (Incisions healing well) GI Palp: Yes Soft to palpation, Yes Tenderness to palpation present (GI) and No Guarding due to palpation present (GI) Auscultation: abnormal bowel sounds (Some high-pitched bowel sounds but generally good bowel sounds present) Objective Data Vital Signs Vital Signs: Vital Signs - 24 hr 05/10/22 16:20 05/10/22 22:14 05/10/22 20:10 Temperature 37.5 C 37.9 C H Pulse Rate 86 91 Respiratory Rate 18 26 H Blood Pressure 134/69 135/85 Pulse Oximetry 100 93 Oxygen Delivery Room Air Intake/Output Intake/Output: Intake & Output 05/08/22 05/09/22 05/10/22 05/11/22 23:59 23:59 23:59 23:59 Intake Total 1400 2200 1440 360 Output Total 1875 1450 Balance 1400 325 -10 360 Meds/Results Medications: Active Medications Generic Name Dose Route Start Last Admin Trade Name Freq PRN Reason Stop Dose Admin Acetaminophen 500 mg 05/08/22 20:23 05/09/22 20:02 Acetaminophen 500 Mg Tablet PO 500 mg Q6H PRN Administration Mild Pain (1-3) or Fever Hydrocodone Bitart/Acetaminophen 1 tab 05/08/22 20:23 05/11/22 10:58 Hydrocodone/Acetaminophen (*Crx) 5-325 Mg Tablet PO 1 tab Q4H PRN Administration Pain Rated 4-6 Hydrocodone Bitart/Acetaminophen 1 tab 05/08/22 20:23 05/10/22 20:10 Hydrocodone/Acetaminophen (*Crx) 10-325 Mg Tablet PO 1 tab Q4H PRN Administration Pain Rated 7-10 Enoxaparin Sodium 40 mg 05/09/22 09:00 05/11/22 08:58 Enoxaparin 40 Mg/0.4 Ml Syringe SUB-Q 40 mg DAILY RYAN Administration Famotidine 20 mg 05/10/22 21:00 05/11/22 08:58 Famotidine 20 Mg Tablet PO 20 mg Q12HR RYAN Administration Piperacillin/Tazobactam/Dextrose 3.375 gm in 50 mls @ 100 mls/hr 05/08/22 21:00 05/11/22 09:31 Zosyn 3.375 Gm/D5w 50ml Pm IVPB Infused Q6H RYAN Infusion Ibuprofen 800 mg in 200 mls @ 400 mls/hr 05/09/22 10:53 Caldolor 800 Mg/200 Ml IVPB Q6H PRN Pain Rated 1-3 Potassium Chloride 40 meq/ 1,020 mls @ 80 mls/hr 05/11/22 13:09 Sodium Chloride IV CONT .[id number] [facility] Miscellaneous Information 1 each 05/10/22 16:25 Melatonin 500 Mcg Nonformulary. Change XX 06/09/22 16:24 CLARIFY RYAN Morphine Sulfate 2 mg 05/08/22 20:23 05/09/22 20:04 Morphine Sulfate (*Crx) 2 Mg/Ml Inj IV PUSH 2 mg Q2H PRN Administration Pain Rated 4-6 Morphine Sulfate 4 mg 05/08/22 20:23 05/09/22 12:02 Morphine Sulfate (*Crx) 4 Mg/Ml Inj IV PUSH 4 mg Q2H PRN Administration Pain Rated 7-10 Naloxone HCl 0.1 mg 05/08/22 20:23 Naloxone Hcl 0.4 Mg/Ml Vial IV PUSH Q2M PRN Opiate Reversal Non-Formulary Medication 300 mcg 05/10/22 15:55 Melatonin SUBLINGUAL QHS PRN Insomnia Ondansetron HCl 4 mg 05/08/22 2
[2022-05-11 14:00] VITALS: BP 135/82; PULSE 82; RESP 18; TEMP 37.8; O2SAT 96
[2022-05-11] MEDS: KCL 40 MEQ/0.9% SOD CHL 1,000 ML 80 ML IV CONT (14:05)
[2022-05-11 16:10] VITALS: TEMP 37.9
[2022-05-11] MEDS: ACETAMINOPHEN 500 MG TABLET PO ×2 (16:16→21:49)
[2022-05-11 17:27] VITALS: TEMP 36.8
[2022-05-11] MEDS: TAMSULOSIN HCL 0.4 MG CAPSULE PO (21:21)
[2022-05-11 21:23] VITALS: BP 148/89; PULSE 86; RESP 18; TEMP 37.1; O2SAT 97
[2022-05-12] MEDS: KCL 40 MEQ/0.9% SOD CHL 1,000 ML 80 ML IV CONT (01:18)
--- NOTE | 2022-05-12 01:24 | PC.NURSE ---
Daylight Savings Time For Daylight Savings Time Ending in the Fall - Clocks are moved back. For Daylight Savings Time Beginning in the Spring - Clocks are moved ahead. For [facility], the time of change occurs at 0200 hrs. Time is taken from the server engineer. This entry on the patient's chart recognizes the change in time reflected during documentation. Example: 2 entries for vital signs may be charted for 0200 hrs.
[2022-05-12] MEDS: ACETAMINOPHEN 500 MG TABLET PO ×4 (02:21→21:23)
[2022-05-12 06:00] VITALS: BP 143/85; PULSE 75; RESP 18; TEMP 36.4; O2SAT 97
[2022-05-12 07:58] LABS: Hematocrit 35.4 % (42.0-52.0); Hemoglobin 11.9 g/dL (14.0-18.0); Mean Corpuscular HGB Conc 33.6 g/dl (32-36); Mean Corpuscular Hemoglobin 33.1 pg (26-34); Mean Corpuscular Volume 98.3 fl (80-100); Mean Platelet Volume 8.8 fl (7.4-10.4); Platelet Count Result 210 k/mm3 (150-375); Red Cell Distribution Width 12.4 % (11.5-14.5); White Blood Count 7.2 K/mm3 (4.5-10.0)
[2022-05-12 08:14] LABS: Anion Gap 13 mmol/L (8-16); Blood Urea Nitrogen 11 mg/dL (9-20); Calcium 8.1 mg/dL (8.4-10.2); Carbon Dioxide 23 mmol/L (22-30); Chloride 98 mmol/L (98-107); Estimated CRCL calculation 118 ml/min; Estimated Glomerular Filt Rate > 60; Glucose 89 mg/dL (65-110); Potassium 3.8 mmol/L (3.4-5.0); Sodium 134 mmol/L (137-145)
[2022-05-12] MEDS: ENOXAPARIN 40 MG/0.4 ML SYRINGE SUB-Q (09:14)
[2022-05-12] MEDS: FAMOTIDINE 20 MG TABLET PO ×2 (09:15→20:48)
[2022-05-12] MEDS: VENLAFAXINE HCL XR 75 MG CAP.ER.24H PO (09:15)
--- NOTE | 2022-05-12 11:01 | PM.PNGS ---
Progress Note: A&P Assessment and Plan (1) Acute appendicitis with perforation and generalized peritonitis, without abscess: Code(s): K35.20 - Acute appendicitis with generalized peritonitis, without abscess Status: Acute Assessment and Plan: continues to improve. Advanced to soft diet. Continue ambulation. Recheck labs again in more burning. Fever normal today. Path shows perforated appendicitis. 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 Path shows seborrheic keratosis. Subjective Subjective Date/Time Seen: 05/12/22 11:01 Post Op day: 4 Patient reports: no new complaints, feels better, pain is less, bowel movement and fever ( 37.9 yesterday afternoon, afebrile since) Exam Const: General: comfortable and no acute distress; No confusion Orientation/consciousness: patient oriented x3 and No confusion GI: Inspection: non-distended and incision ( dry and healing well) GI Palp: Yes Soft to palpation, Yes Tenderness to palpation present (GI) ( mild tenderness), No Guarding due to palpation present (GI) and No Rebound tenderness present Auscultation: normal bowel sounds Neuro: General: patient oriented x3, no focal motor deficits and No confusion Extrem: General: no calf tenderness and no edema Psych: Affect: normal affect Insight: Good insight present (Psych) Judgement: Good judgement present (Psych) Objective Data Vital Signs Vital Signs: Vital Signs - 24 hr 05/11/22 14:00 05/11/22 16:10 05/11/22 17:27 Temperature 37.8 C H 37.9 C H 36.8 C Pulse Rate 82 Respiratory Rate 18 Blood Pressure 135/82 Pulse Oximetry 96 05/11/22 21:23 05/12/22 06:00 Temperature 37.1 C 36.4 C Pulse Rate 86 75 Respiratory Rate 18 18 Blood Pressure 148/89 H 143/85 H Pulse Oximetry 97 97 Intake/Output Intake/Output: Intake & Output 05/09/22 05/10/22 05/11/22 05/12/22 23:59 23:59 23:59 22:59 Intake Total 2200 1440 1420 1460 Output Total 1875 1450 300 Balance 325 -10 1420 1160 Meds/Results Medications: Active Medications Generic Name Dose Route Start Last Admin Trade Name Freq PRN Reason Stop Dose Admin Acetaminophen 1 - 2 mg 05/12/22 11:01 Acetaminophen 500 Mg Tablet PO Q6H PRN Mild Pain (1-3) or Fever Enoxaparin Sodium 40 mg 05/09/22 09:00 05/12/22 09:14 Enoxaparin 40 Mg/0.4 Ml Syringe SUB-Q 40 mg DAILY RYNA Administration Famotidine 20 mg 05/10/22 21:00 05/12/22 09:15 Famotidine 20 Mg Tablet PO 20 mg Q12HR RYAN Administration Piperacillin/Tazobactam/Dextrose 3.375 gm in 50 mls @ 100 mls/hr 05/08/22 21:00 05/12/22 09:45 Zosyn 3.375 Gm/D5w 50ml Pm IVPB Infused Q6H RYAN Infusion Ibuprofen 600 mg 05/12/22 10:59 Ibuprofen 600 Mg Tablet PO Q6H PRN Pain Rated 4-6 Morphine Sulfate 2 mg 05/08/22 20:23 05/09/22 20:04 Morphine Sulfate (*Crx) 2 Mg/Ml Inj IV PUSH 2 mg Q2H PRN Administration Pain Rated 4-6 Morphine Sulfate 4 mg 05/08/22 20:23 05/09/22 12:02 Morphine Sulfate (*Crx) 4 Mg/Ml Inj IV PUSH 4 mg Q2H PRN Administration Pain Rated 7-10 Naloxone HCl 0.1 mg 05/08/22 20:23 Naloxone Hcl 0.4 Mg/Ml Vial IV PUSH Q2M PRN Opiate Reversal Ondansetron HCl 4 mg 05/08/22 20:23 Ondansetron Inj 4 Mg/2 Ml Vial IV PUSH Q4H PRN Nausea And Vomiting Oxycodone/Acetaminophen 1 tablet 05/12/22 10:59 Oxycodone/Acetaminophen (*Crx) 5-325 Mg Tablet PO Q4H PRN Pain Rated 7-10 Tamsulosin HCl 0.4 mg 05/09/22 12:45 05/11/22 21:21 Tamsulosin Hcl 0.4 Mg Capsule PO 0.4 mg HS RYAN Administration Venlafaxine HCl 75 mg 05/10/22 08:00 05/12/22 09:15 Venlafaxine Hcl Xr 75 Mg Cap.Er.24h PO 75 mg DAILY@0800 RYAN Administration Radiology Results: ITS Impressions Abdomen/Pelvis CT 05/08/22 15:22 IMPRESSION: Acute uncomp
[2022-05-12 14:00] VITALS: BP 159/82; PULSE 78; RESP 16; TEMP 36.5; O2SAT 95
[2022-05-12] MEDS: IBUPROFEN 600 MG TABLET PO (17:15)
[2022-05-12] MEDS: TAMSULOSIN HCL 0.4 MG CAPSULE PO (20:48)
[2022-05-12 21:46] VITALS: BP 136/83; PULSE 70; RESP 20; TEMP 36.9; O2SAT 98
[2022-05-13] MEDS: IBUPROFEN 600 MG TABLET PO ×2 (01:30→08:40)
[2022-05-13] MEDS: ACETAMINOPHEN 500 MG TABLET PO ×2 (03:51→12:08)
[2022-05-13 06:00] VITALS: BP 138/73; PULSE 65; RESP 20; TEMP 36.6; O2SAT 97
[2022-05-13 06:36] LABS: Hematocrit 34.2 % (42.0-52.0); Hemoglobin 11.6 g/dL (14.0-18.0); Mean Corpuscular HGB Conc 33.9 g/dl (32-36); Mean Corpuscular Hemoglobin 34.1 pg (26-34); Mean Corpuscular Volume 100.6 fl (80-100); Mean Platelet Volume 8.9 fl (7.4-10.4); Platelet Count Result 220 k/mm3 (150-375); Red Cell Distribution Width 12.5 % (11.5-14.5); White Blood Count 6.7 K/mm3 (4.5-10.0)
[2022-05-13 06:42] LABS: Anion Gap 9 mmol/L (8-16); Blood Urea Nitrogen 11 mg/dL (9-20); Calcium 7.9 mg/dL (8.4-10.2); Carbon Dioxide 23 mmol/L (22-30); Chloride 99 mmol/L (98-107); Estimated CRCL calculation 118 ml/min; Estimated Glomerular Filt Rate > 60; Glucose 93 mg/dL (65-110); Potassium 3.4 mmol/L (3.4-5.0); Sodium 131 mmol/L (137-145)
[2022-05-13] MEDS: FAMOTIDINE 20 MG TABLET PO (08:35)
[2022-05-13] MEDS: VENLAFAXINE HCL XR 75 MG CAP.ER.24H PO (08:35)
--- NOTE | 2022-05-13 10:07 | ADMGEN ---
This patient, Ricardo Morrow, was admitted to [facility] Surg Room 327-01. Patient/family oriented to hospital policies and general routines including ID bracelet, bed and alarms, visiting hours, pain management, procedures, bathroom and other care routines, personal items, smoking policy, room service/diet, and visiting hours. Information on how to activate the Rapid Response Team has been discussed. Patient/Family are encouraged to report perceived risks to care and to ask questions if they do not understand what they are told or what they should do. admitted on friMay 08 2022
[2022-05-13 10:54] VITALS: BP 124/70; PULSE 63; RESP 18; TEMP 36.4; O2SAT 98
--- NOTE | 2022-05-13 11:18 | PM.DS ---
DS: Admitting Diagnosis Discharge Date 05/13/22 Admitting Diagnosis Acute appendicitis Fleshy pigmented skin lesion DS: Discharge Diagnosis Discharge Diagnosis (1) Acute appendicitis with perforation and generalized peritonitis, without abscess: Code(s): K35.20 - Acute appendicitis with generalized peritonitis, without abscess Status: Acute Assessment and Plan: 05/08/22 -laparoscopic appendectomy, excision skin lesion right eyelid -by Dr. Cintron Pathology showed acute perforated appendicitis. 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 Pathology shows seborrheic keratosis and was discussed with the patient. Will have patient follow-up on for suture removal with Dr. Cintron. DS: Summary Hospital Course Reason for hospitalization: This is a 66-year-old man who presented with a 1 day history of mid abdominal pain that began to move to the right lower quadrant and became more severe. Had associated nausea and fever. ER workup showed mild leukocytosis and CT evidence of acute appendicitis. He was admitted in the setting for surgical evaluation. Hospital Course: On exam, the patient also had a skin lesion on his right eyelid that had been bothering him and getting larger. He asked to have this also removed during surgery. The patient underwent a laparoscopic appendectomy, excision 1.2 cm skin lesion right eyelid on 05/08/[address] Cintron. In surgery, he was found to have ruptured appendicitis with generalized peritonitis. He was admitted to the medical floor following surgery and was continued on broad-spectrum IV antibiotics. After surgery he had a poor appetite and slow return of bowel function. He was slowly advanced eventually to a regular diet. He did have a fever through postop day 1 to postop day 3 when it was low grade. He then became afebrile and his white blood cell count was normal following surgery and during the remainder of his hospitalization. Labs also revealed mild hypokalemia with a potassium of 3.4 on postop day 5. He will subsequently be sent home with oral potassium supplementation for a few days after discharge. By postop day 5 he was stable for discharge and will be transitioned to oral antibiotics. He will follow up with Dr. Cintron in the office on for suture removal. Status at Discharge Functional status at discharge: independent ambulation Overall status at discharge: patient is progressing back to baseline Time Spent with Patient Time attestation: Total time spent providing and/or coordinating discharge services: Time spent: Greater than 30 minutes Exam Const: General: comfortable, no acute distress and awake Orientation/consciousness: patient oriented x3 Eyes: Other: Right eyelid incision dry and intact with localized ecchymosis across the eyelid GI: Inspection: non-distended and incision ( dry and healing well) GI Palp: Yes Soft to palpation, Yes Tenderness to palpation present (GI) (incisional) and No Guarding due to palpation present (GI) Auscultation: normal bowel sounds Neuro: General: moves all extremities and no focal motor deficits Extrem: General: no calf tenderness and no edema Psych: Mental Status: mental status grossly normal Insight: Good insight present (Psych) DS: Data Data Completed and Pending Completed studies during hospitalization: Pending at discharge 05/08/22 17:40 Surgical [PTH] Routine Surgical [PTH] Routine Labs on day of discharge: Labs from last 24 hours 05/13/22 05/13/22 05:59 05:59 WBC 6.7 RBC 3.40 L Hgb 11.6 L Hct 34.2 L MCV 100.6 H MCH 34.1 H MCHC 33.9 RDW 12.5 Plt Count 220 MPV 8.9 Sodium 131 L Potassium 3.4 Chloride 99 Carbon Dioxide 23 Anion Gap 9 BUN 11 Creatinine 0.60 L Estim Creat Clear Calc 118 Estimated GFR > 60 Glucose 93 Calciu
[2022-05-13] MEDS: POTASSIUM CHLORIDE 20 MEQ TABLET.ER PO (12:03)
== END 2022-05-13 12:13 | disposition home or self-care (01) | DRG 343 ==
LOC: ANHED 15:59 → ANHSURGERY 16:02 → ANH3MEDSUR 20:25
PROVIDERS: Admitting Provider Surgery; Emergency Provider Emergency Medicine; PCP Internal Medicine; Visit Provider Nurse Practitioner Family
PROC: 0DTJ4ZZ Resection of Appendix, Percutaneous Endoscopic Approach (ICD-10-PCS; CPT 44970; principal; 2022-05-08 16:00)
DX: K35.20 Acute appendicitis with generalized peritonitis, without abscess (principal); L82.1 Other seborrheic keratosis; E78.5 Hyperlipidemia, unspecified; N40.0 Benign prostatic hyperplasia without lower urinary tract symptoms; F32.A Depression, unspecified; G25.0 Essential tremor; Z20.822 Contact with and (suspected) exposure to COVID-19; Z79.82 Long term (current) use of aspirin; Z79.899 Other long term (current) drug therapy
CPT/HCPCS: 36415; 74177; 80048; 80053; 83605; 83690; 85025; 85027; 85610; 85730; 86140; 86850; 86900; 86901; 87040; 88304; 88305; 96365; 96367; 96375; 99285; A9270; J0131; J1100; J1650; J1885; J2270; J2370; J2405; J2543; J2704; J2710; J3010; J3480; J7030; J7120; Q9967; U0003; U0005